=== PATIENT | female | born 1955 | race Caucasian/White ===

== ENCOUNTER 2018-08-06 15:53 | Emergency (ER) | payer OTHER ==
[2018-08-06] MEDS ORDERED: Sodium Chloride 0.9% 1000 ML 1,000 ML IV SCH (16:45)
[2018-08-06] MEDS ORDERED: Sodium Chloride 0.9% 1000 ML 1,000 ML ONE (17:12)
[2018-08-06 17:56] LABS: INR 1.6 (0.8-3.0); PROTIME 18.7 SECONDS (9.95-12.35)
[2018-08-06 18:02] LABS: BASOPHIL % 0.4 % (0.0-0.4); Basophil (Absolute #) 0.02 (0-0.4); Eosinophil % 1.7 % (0.00-5.0); Eosinophil (Absolute #) 0.09 (0-0.5); Granulocyte Absolute (ANC) 3.35 (1.4-6.9); Granulocytes % 64.5 % (36.0-66.0); Hematocrit 42.3 % (35-47); Hemoglobin 14.1 gm/dl (12.0-16.0); Lymphocyte (Absolute #) 1.15 (1.0-4.6); Lymphocytes % 22.2 % (24.0-44.0); Mean Cell Volume 104.4 fl (78-100); Mean Corpuscular Hemoglobin 34.8 pg (26-32); Mean Corpuscular Hgb Concent. 33.3 g/dl (32-36); Mean Platelet Volume 11.5 fl (6-9.5); Monocyte (Absolute #) 0.58 (0.0-1.3); Monocytes % 11.2 % (0.0-12.0); Platelet Count 76 K/mm3 (150-450); Red Blood Count 4.05 M/mm3 (4.1-5.4); Red Cell Distribution Width 14.8 % (11.5-14.0); White Blood Count 5.2 K/mm3 (4.0-10.5)
[2018-08-06 18:04] LABS: ALKALINE PHOSPHATASE 240 U/L (38-126); AMYLASE 108 U/L (30-110); ANION GAP 10.3 MEQ/L (5-15); BLOOD UREA NITROGEN 13 mg/dL (7-17); CHLORIDE 103 mmol/L (98-107); Calcium 8.4 mg/dL (8.4-10.2); Carbon Dioxide 25 mmol/L (22-30); Creatinine 1 0.57 mg/dL (0.52-1.04); Glucose 100 mg/dL (74-106); Potassium 4.1 mmol/L (3.5-5.1); SGOT/AST 101 U/L (14-36); SGPT/ALT 56 U/L (0-35); SODIUM 134 mmol/L (137-145); Total Protein 8.7 g/dL (6.3-8.2)
[2018-08-06 18:36] LABS: Appearance CLOUDY (CLEAR); Bacteria FEW /HPF (NEGATIVE); Bilirubin NEGATIVE (NEGATIVE); Blood NEGATIVE Ery/ul (0-5); Calcium Oxalate Crystals >100 /HPF (NEGATIVE); Epithelial Cells RARE /HPF (FEW); Glucose NEGATIVE (NEGATIVE); Ketones NEGATIVE (NEGATIVE); Leukocyte Esterase TRACE (NEGATIVE); Mucus SLIGHT /HPF (NEGATIVE); Nitrite NEGATIVE (NEGATIVE); Protein,Urine Dip NEGATIVE (Negative); Specific Gravity 1.024 (1.005-1.025); Urobilinogen 4 mg/dL (0-1)
[2018-08-06] MEDS ORDERED: Levofloxacin 500MG/100ML D5W 500 MG/100 ML BAG IV STA (19:19)
[2018-08-06] MEDS ORDERED: Levofloxacin 500 MG Tablet ONE (19:27)
[2018-08-06] MEDS ORDERED: Levofloxacin 500MG/100ML D5W 500 MG/100 ML BAG IV ONE (19:27)
--- NOTE | 2018-08-06 19:33 | ERPHSYRPT ---
- History of Present Illness Time Seen by Provider: 08/06/18 16:10 Historian: patient Exam Limitations: clinical condition Patient Subjective Stated Complaint: Pt states that she is need of a paracentesis and her abdomen drained in her bed today Triage Nursing Assessment: Pt reports that she has hep C and her abdomen is needing drained, stated that she woke up and her bed was soaked and fluid was squirting out of her umbilicus, has an umbilical hernia, +1 edema to bilateral lower extremeties, BP 164/89, denies pain, had abdomen drained 11 months ago, Physician History: PATIENT WITH A HISTORY OF CIRRHOSIS, HEPATITIS C AND ASCITES, UNDERWENT PARACENTESIS 08/2017, NOW COMPLAINS OF CLEAR DRAIN FROM UMBILICUS WITH ASCITES ALL OVER HER BED THIS AM, NOTED FLIUD SPURTING FROM UMBILICAL HERNIA IN SITTING POSITION. HAS MINIMAL ABDOMINAL PAIN. DENIES FEVER, CHILLS. STATES MARKED ABDOMINAL GIRTH HAS IMPROVED SINCE LEAKAGE FROM UMBILICUS. Timing/Duration: today Activities at Onset: none Quality: cramping Abdominal Pain Onset Location: other (MINIMAL A) Pain Radiation: no radiation Severity of Pain-Max: mild Severity of Pain-Current: mild Modifying Factors: Improves With: movement Associated Symptoms: other (LEAKAGE OF ASCITES FROM UMBILICUS) Previous symptoms: same symptoms as today Allergies/Adverse Reactions: Penicillins Allergy (Verified 08/06/18 16:26) Home Medications: Albuterol Common Canister [Proventil Common Canister] 1 inh PO UD [History] Budesonide/Formoterol Fumarate [Symbicort 160-4.5 Mcg Inhaler] 10.2 gm IH UD [History] Furosemide 20 mg [Lasix 20 mg] 20 mg PO BID 08/06/18 [History] Spironolactone 25 mg [Aldactone 25 MG] 50 mg PO DAILY 08/06/18 [History] - Review of Systems Constitutional: No Fever, No Chills Eyes: No Symptoms Ears, Nose, & Throat: No Symptoms Respiratory: No Symptoms, No Cough, No Dyspnea Cardiac: No Symptoms, No Chest Pain, No Edema, No Syncope Abdominal/Gastrointestinal: Other (LEAKAGE OF ASCITES), No Abdominal Pain, No Nausea, No Vomiting, No Diarrhea Genitourinary Symptoms: No Dysuria Musculoskeletal: No Symptoms, No Back Pain, No Neck Pain Skin: No Rash Neurological: No Symptoms, No Dizziness, No Focal Weakness, No Sensory Changes Psychological: No Symptoms Endocrine: No Symptoms All Other Systems: Reviewed and Negative - Past Medical History Pertinent Past Medical History: Yes Cardiac History: Other Respiratory History: Asthma Endocrine Medical History: Liver Disease Psycho-Social History: Depression Other Medical History: prolapsed mitral valve, autoimmune hepatitis, hep C, - Past Surgical History Past Surgical History: Yes - Social History Smoking Status: Current every day smoker How long have you smoked: 50 years Exposure to second hand smoke: Yes Drug Use: none Patient Lives Alone: Yes - Female History Hx Now: No - Nursing Vital Signs Nursing Vital Signs: Initial Vital Signs Temperature 97.9 F 08/06/18 16:02 Pulse Rate 90 08/06/18 16:02 Respiratory Rate 16 08/06/18 16:02 Blood Pressure 164/89 08/06/18 16:02 O2 Sat by Pulse Oximetry 97 08/06/18 16:02 Pain Scale Pain Intensity 0 - Physical Exam General Appearance: no apparent distress, alert Eye Exam: PERRL/EOMI, eyes nml inspection Ears, Nose, Throat Exam: normal ENT inspection, pharynx normal, moist mucous membranes Neck Exam: normal inspection, non-tender, supple, full range of motion Respiratory Exam: normal breath sounds, lungs clear, No respiratory distress Cardiovascular Exam: regular rate/rhythm, normal heart sounds Gastrointestinal/Abdomen Exam: soft, normal bowel sounds, tenderness (UMBILICAL HERNIA 5CM X 6CM WITH ERYTHRMA 1CM X 1CM C 2 SCABS OVER UMBILLICUS), distention (WITH MODERATE ASCITES), No mass Back Exam: normal inspection, normal range of motion, No CVA tenderness, No vertebral tenderness Extremity Exam: normal inspection, normal range of motion, pelvis stable Neurologic Exam: alert, oriented x 3, cooperative, normal mood/affect, nml cerebellar function, sensation nml, No motor deficits Skin Exam: normal color, warm, dry SpO2 Interpretation: normal SpO2: 97 - CT Exams Abdomen/Pelvis CT Interpretation: Discussed w/radiologist (NOTED CIRRHOSIS, HEPATIC CYSTS, MODERATE ADOMINAL PELVIC ASCITES,UPPER COLLATERAL VARICES, ENLARGING FLUID FILLED UMBILICAL HERNIA, GALLSTONES/GRAVEL, DIFFUSE DIVERTICULOSIS) Ordered Tests: Active Orders 24 hr Category Date Time Status Clean Catch Urine Specimen STAT Care 08/06/18 16:40 Active IV Insertion STAT Care 08/06/18 16:40 Active ABDOMEN AND PELVIS W CONTRAST [CT] Stat Exams 08/06/18 16:41 Taken AMYLASE Stat Lab 08/06/18 17:47 Completed BLOOD CULTURE Stat Lab 08/06/18 17:40 Received CBC W DIFF Stat Lab 08/06/18 17:47 Completed CMP Stat Lab 08/06/18 17:47 Completed CULTURE,URINE Stat Lab 08/06/18 Received MAGNESIUM Stat Lab 08/06/18 17:47 Completed PT INR [PROTIME WITH INR] Stat Lab 08/06/18 17:47 Completed UA W/RFX UR CULTURE Stat Lab 08/06/18 Completed Medication Summary Generic Name Dose Route Start Last Admin Trade Name Freq PRN Reason Stop Dose Admin Sodium Chloride 1,000 mls @ 50 mls/hr 08/06/18 16:45 08/06/18 17:33 Sodium Chloride 0.9% 1000 Ml IV 09/05/18 16:44 50 mls/hr .Q20H RUBIO Administration Discontinued Medications Generic Name Dose Route Start Last Admin Trade Name Freq PRN Reason Stop Dose Admin Levofloxacin/Dextrose 500 mg in 100 mls @ 100 mls/hr 08/06/18 19:19 08/06/18 19:29 Levofloxacin 500mg/100ml D5w IV 08/06/18 20:18 100 ml/hr STAT STA 100 mls/hr Administration Levofloxacin/Dextrose Confirm 08/06/18 19:27 Levofloxacin 500mg/100ml D5w Administered 08/06/18 19:28 Dose 500 mg in 100 mls @ ud IV .STK-MED ONE Levofloxacin Confirm 08/06/18 19:27 Levofloxacin 500 Mg Tablet Administered 08/06/18 19:28 Dose 500 mg .ROUTE .STK-MED ONE Lab/Rad Data: Laboratory Result Diagrams 08/06/18 17:47 08/06/18 17:47 Laboratory Results 08/06/18 08/06/18 08/06/18 Range/Units Unknown 17:47 17:47 WBC (4.0-10.5) K/mm3 RBC (4.1-5.4) M/mm3 Hgb (12.0-16.0) gm/dl Hct (35-47) % MCV (78-100) fl MCH (26-32) pg MCHC (32-36) g/dl RDW (11.5-14.0) % Plt Count (150-450) K/mm3 MPV (6-9.5) fl Gran % (36.0-66.0) % Eos # (Auto) (0-0.5) Absolute Lymphs (auto) (1.0-4.6) Absolute Monos (auto) (0.0-1.3) Lymphocytes % (24.0-44.0) % Monocytes % (0.0-12.0) % Eosinophils % (0.00-5.0) % Basophils % (0.0-0.4) % Absolute Granulocytes (1.4-6.9) Basophils # (0-0.4) PT 18.7 H (9.95-12.35) SECONDS INR 1.60 (0.8-3.0) Sodium (137-145) mmol/L Potassium (3.5-5.1) mmol/L Chloride (98-107) mmol/L Carbon Dioxide (22-30) mmol/L Anion Gap (5-15) MEQ/L BUN (7-17) mg/dL Creatinine (0.52-1.04) mg/dL Estimated GFR ML/MIN Glucose (74-106) mg/dL Calcium (8.4-10.2) mg/dL Magnesium (1.6-2.3) mg/dL Total Bilirubin (0.2-1.3) mg/dL AST (14-36) U/L ALT (0-35) U/L Alkaline Phosphatase (38-126) U/L Ammonia < 9 L (9-30) umol/L Serum Total Protein (6.3-8.2) g/dL Albumin (3.5-5.0) g/dL Amylase (30-110) U/L Urine Color DEDE (YELLOW) Urine Appearance CLOUDY (CLEAR) Urine pH 5.0 (5-6) Ur Specific Weston 1.024 (1.005-1.025) Urine Protein NEGATIVE (Negative) Urine Ketones NEGATIVE (NEGATIVE) Urine Blood NEGATIVE (0-5) Mauri/ul Urine Nitrite NEGATIVE (NEGATIVE) Urine Bilirubin NEGATIVE (NEGATIVE) Urine Urobilinogen 4 (0-1) mg/dL Ur Leukocyte Esterase TRACE (NEGATIVE) Urine WBC (Auto) 6-10 (0-5) /HPF Urine RBC (Auto) 3-5 (0-2) /HPF U Epithel Cells (Auto) RARE (FEW) /HPF Urine Bacteria (Auto) FEW (NEGATIVE) /HPF Calcium Oxalate Crystal >100 (NEGATIVE) /HPF Urine Mucus (Auto) SLIGHT (NEGATIVE) /HPF Urine Culture Reflexed YES (NO) Urine Glucose NEGATIVE (NEGATIVE) mg/dL 08/06/18 08/06/18 08/06/18 Range/Units 17:47 17:47 17:47 WBC 5.2 (4.0-10.5) K/mm3 RBC 4.05 L (4.1-5.4) M/mm3 Hgb 14.1 (12.0-16.0) gm/dl Hct 42.3 (35-47) % MCV 104.4 H (78-100) fl MCH 34.8 H (26-32) pg MCHC 33.3 (32-36) g/dl RDW 14.8 H (11.5-14.0) % Plt Count 76 L (150-450) K/mm3 MPV 11.5 H (6-9.5) fl Gran % 64.5 (36.0-66.0) % Eos # (Auto) 0.09 (0-0.5) Absolute Lymphs (auto) 1.15 (1.0-4.6) Absolute Monos (auto) 0.58 (0.0-1.3) Lymphocytes % 22.2 L (24.0-44.0) % Monocytes % 11.2 (0.0-12.0) % Eosinophils % 1.7 (0.00-5.0) % Basophils % 0.4 (0.0-0.4) % Absolute Granulocytes 3.35 (1.4-6.9) Basophils # 0.02 (0-0.4) PT (9.95-12.35) SECONDS INR (0.8-3.0) Sodium 134 L (137-145) mmol/L Potassium 4.1 (3.5-5.1) mmol/L Chloride 103 (98-107) mmol/L Carbon Dioxide 25 (22-30) mmol/L Anion Gap 10.3 (5-15) MEQ/L BUN 13 (7-17) mg/dL Creatinine 0.57 (0.52-1.04) mg/dL Estimated GFR > 60.0 ML/MIN Glucose 100 (74-106) mg/dL Calcium 8.4 (8.4-10.2) mg/dL Magnesium 1.8 (1.6-2.3) mg/dL Total Bilirubin 2.50 H (0.2-1.3) mg/dL AST 101 H (14-36) U/L ALT 56 H (0-35) U/L Alkaline Phosphatase 240 H (38-126) U/L Ammonia (9-30) umol/L Serum Total Protein 8.7 H (6.3-8.2) g/dL Albumin 3.0 L (3.5-5.0) g/dL Amylase 108 (30-110) U/L Urine Color (YELLOW) Urine Appearance (CLEAR) Urine pH (5-6) Ur Specific Weston (1.005-1.025) Urine Protein (Negative) Urine Ketones (NEGATIVE) Urine Blood (0-5) Mauri/ul Urine Nitrite (NEGATIVE) Urine Bilirubin (NEGATIVE) Urine Urobilinogen (0-1) mg/dL Ur Leukocyte Esterase (NEGATIVE) Urine WBC (Auto) (0-5) /HPF Urine RBC (Auto) (0-2) /HPF U Epithel Cells (Auto) (FEW) /HPF Urine Bacteria (Auto) (NEGATIVE) /HPF Calcium Oxalate Crystal (NEGATIVE) /HPF Urine Mucus (Auto) (NEGATIVE) /HPF Urine Culture Reflexed (NO) Urine Glucose (NEGATIVE) mg/dL - Progress Discussed with : Other (DISCUSSED WITH DR [facility] [employer] [facility] FOR FOLLOWUP WITH DR COLON OR [facility]) Counseled pt/family regarding: lab results, diagnosis, need for follow-up - Departure Time of Disposition: 23:30 Departure Disposition: Home Clinical Impression: Cirrhosis of liver with ascites, CHOLILITHIASIS, EARLY UMBILICAL CELLULITIS, URINARY TRACT INFECTION Condition: Stable Critical Care Time: No Referrals: PAVAN STEEL [Primary Care Provider] - Additional Instructions: ANTIBIOTIC LEVAQUIN 500MG DAILY FOR 10 DAYS. CONSULT YOUR PRIMARY CARE PROVIDER TOMORROW FOR EVALUATION AND FOLLOWUP WITH DR COLON OR [facility]. RETURN TO EMERGENCY ROOM FOR ONSET OF ABDOMINAL PAIN OR LEAKAGE OF ASCITES. Prescriptions: Levofloxacin [Levaquin] 500 mg PO DAILY #10 tablet
[2018-08-06 23:20] VITALS: O2SAT 97
[2018-08-06 23:28] VITALS: BP 128/74; PULSE 74
[2018-08-07 01:55] LABS: Slide Review 1 YES
--- NOTE | 2018-08-07 09:06 | XRAY ---
Indication: Hepatic failure. Ascites. Multiple contiguous axial images obtained through the abdomen and pelvis using 80 cc Isovue 370 contrast as ordered. Comparison: July 12, 2017. Lung bases demonstrate stable lingula fibrosis/scarring and bibasilar calcified/noncalcified granulomas. No infiltrate or effusion. Heart is not enlarged. Stable cirrhotic liver with subsequent stable moderate abdomen/pelvic ascites, prominent portal vein, 18.5 cm splenomegaly, left upper quadrant varices, and distal paraesophageal varices. Interval enlarging large fluid-filled umbilical hernia and stable small fluid-filled left inguinal hernia. Elsewhere stable tiny hepatic cysts, left renal exophytic cyst, and gallstones/gravel. Noncontrasted stomach and bowel loops appear nonobstructed. Again diffuse scattered colonic diverticulosis. Remaining pancreas, adrenal glands, kidneys, ureters, bladder, and uterus appear unremarkable. There remains mild aortoiliac calcifications. Again no AAA or pathologic retroperitoneal lymphadenopathy. Osseous structures intact again with lower lumbar degenerative changes. Lower abdomen wall demonstrates slight worsening cutaneous/subcutaneous induration. Impression: 1. Again cirrhotic liver with stable secondary findings including abdominal/pelvic ascites, prominent portal vein, left upper quadrant varices and distal paraesophageal varices. 2. Enlarging large fluid-filled umbilical hernia and stable small fluid-filled left inguinal hernia. 3. Slight worsening lower abdominal wall cutaneous/subcutaneous induration. 4. Stable hepatic/left renal cysts, diffuse colonic diverticulosis, and gallstones/gravel. CT DI 21.99
== END 2018-08-06 23:35 | disposition home or self-care (01) ==
LOC: ED 15:53
DX: K74.60 Unspecified cirrhosis of liver (principal); R18.8 Other ascites; K80.20 Calculus of gallbladder without cholecystitis without obstruction; L03.316 Cellulitis of umbilicus; K42.9 Umbilical hernia without obstruction or gangrene; N39.0 Urinary tract infection, site not specified; K75.9 Inflammatory liver disease, unspecified; K57.92 Diverticulitis of intestine, part unspecified, without perforation or abscess without bleeding; Z79.899 Other long term (current) drug therapy
CPT/HCPCS: 36415; 74177; 80053; 81001; 82140; 82150; 83735; 85025; 85610; 87040; 87086; 96360; 96361; 96365; 99284; J1956; A9270-GY